=== PATIENT | female | born 1990 | race Caucasian/White ===

== ENCOUNTER → 2017-10-25 21:49 | Observation (INO) ==
[2017-10-25 20:27] LABS: Bilirubin,Urine Negative (Negative); Blood,Urine Negative (Negative); Clarity,Urine Clear (Clear); Color,Urine Yellow (Yellow); Glucose,Urine (UA) Normal (Normal); Ketones,Urine Negative (Negative); Leukocyte Esterase,Urine Moderate (Negative); Nitrite,Urine Negative (Negative); Protein,Urine Negative (Neg-Trace); Specific Gravity,Urine 1.013 (1.010-1.025); Urobilinogen,Urine Normal (Normal)
[2017-10-25 20:28] VITALS: BP 121/74
[2017-10-25 20:28] LABS: Bacteria,Urine None Seen per hpf (None-Few); Hyaline Casts,Urine None Seen per lpf (None-Few); RBC,Urine 0-3 per hpf (0-3); Squamous Epithelial Cell,Urine Many per lpf (None-Few)
--- NOTE | 2017-10-25 20:32 | OB/GYN Progress Note ---
Date of Encounter: 10/25/17 Time of Encounter: 20:28 - Assessment and Plan (1) 22 weeks gestation of Current Visit: Yes Status: Acute admitted for observation (2) Vaginal bleeding Current Visit: Yes Status: Acute Speculum exam: NO blood visualized, vaginosis panel collected SVE Closed Subjective - Subjective Principal diagnosis: Vaginal bleeding 22 weeks gestational age Interval history: Patient is a 27 y/o @ 22 weeks gestation presents to labor and delivery with complaints of vaginal bleeding. Patient reports that at 1730 she went to the restroom and noted dark red blood on toilet tissue. Patient reports the next time she went she only noticed pink spotting and has not seen blood since. Patient denies any cramping, dysuria, urinary hesitancy, urinary frequency, discharge or vaginal odor. Patient denies any intercourse in past 24 hours. Patient had an ultrasound on 10/23/2017 which showed an anterior placenta. Antepartum ROS: vaginal bleeding, movement normal, no loss of fluid, no contractions Objective - Vital Signs Vital Signs: Vital Signs Temp Pulse Resp BP 10/25/17 20:20 97.6 F 75 16 121/74 - Exam FHR: auscultation normal FHR comments: FHR 145 bpm appropriate for gestational age. NO contractions noted. Auscultation: bilateral: normal Abdomen: Present: normal appearance, soft, gravid Uterus: Present: normal Cervical dilation: closed Cervix effacement: thick Comments: Speculum exam: Moderate amount of watery white discharge noted. NO blood noted on exam.
[2017-10-25 20:50] LABS: Amphetamine Screen,Urine Negative ng/mL (Cutoff=1000); Barbiturate Screen,Urine Negative ng/mL (Cutoff=200); Benzodiazepines Screen,Urine Negative ng/mL (Cutoff=200); Cannabinoid Screen,Urine Negative ng/mL (Cutoff = 50); Cocaine Screen,Urine Negative ng/mL (Cutoff= 300); Opiate Screen,Urine Negative ng/mL (Cutoff=300); Phencyclidine Screen,Urine Negative ng/mL (Cutoff=25)
[2017-10-25 21:32] LABS: Candida DNA Not Detected (Not Detect); Gardnerella DNA DETECTED (Not Detect); Trichomonas DNA Not Detected (Not Detect)
--- NOTE | 2017-10-25 21:41 | Discharge Summary ---
Date of Encounter: 10/25/17 Time of Encounter: 21:39 - Discharge Diagnosis (1) 22 weeks gestation of Priority: Primary Status: Acute (2) Vaginal bleeding Priority: Secondary Status: Acute (3) Bacterial vaginosis Priority: Secondary Status: Acute Comments: RX for flagyl 500mg po BID x 7 days - Discharge Medications Prescriptions: metroNIDAZOLE [Flagyl] 500 mg PO ONCE 7 Days #14 tablet Home Medications: metroNIDAZOLE [Flagyl] 500 mg PO ONCE 7 Days #14 tablet 10/25/17 [Rx] Allergies/Adverse Reactions: 3 Allergy/AdvReac Type Severity Reaction Status Date / Time No Known Allergies Allergy Verified 10/25/17 20:29 Data Procedures and tests throughout hospitalization: Laboratory Tests 10/25/17 10/25/17 10/25/17 20:16 20:16 20:30 Urine Color Yellow Urine Clarity Clear Urine pH 6.0 Ur Specific [place] 1.013 Urine Protein Negative Urine Glucose (UA) Normal Urine Ketones Negative Urine Blood Negative Urine Nitrite Negative Urine Bilirubin Negative Urine Urobilinogen Normal Ur Leukocyte Esterase Moderate H Urine Microscopic RBC 0-3 Urine Microscopic WBC 5-15 H Ur Squamous Epith Cells Many H Urine Bacteria None Seen Hyaline Casts None Seen Ur Culture Indicated? NO. A Urine Opiates Screen Negative Ur Barbiturates Screen Negative Ur Phencyclidine Scrn Negative Ur Amphetamines Screen Negative U Benzodiazepines Scrn Negative Urine Cocaine Screen Negative U Marijuana (THC) Screen Negative Ur Drug Screen Interp See Below [place] species DNA Not Detected Gardnerella DNA Probe DETECTED A Trichomonas DNA Probe Not Detected Labs on day of discharge: Labs from last 24 hours 10/25/17 10/25/17 10/25/17 20:30 20:16 20:16 Urine Color Yellow Urine Clarity Clear Urine pH 6.0 Ur Specific [place] 1.013 Urine Protein Negative Urine Glucose (UA) Normal Urine Ketones Negative Urine Blood Negative Urine Nitrite Negative Urine Bilirubin Negative Urine Urobilinogen Normal Ur Leukocyte Esterase Moderate H Urine Microscopic RBC 0-3 Urine Microscopic WBC 5-15 H Ur Squamous Epith Cells Many H Urine Bacteria None Seen Hyaline Casts None Seen Ur Culture Indicated? NO. A Urine Opiates Screen Negative Ur Barbiturates Screen Negative Ur Phencyclidine Scrn Negative Ur Amphetamines Screen Negative U Benzodiazepines Scrn Negative Urine Cocaine Screen Negative U Marijuana (THC) Screen Negative Ur Drug Screen Interp See Below [place] species DNA Not Detected Gardnerella DNA Probe DETECTED A Trichomonas DNA Probe Not Detected Date of admission: 10/25/17 20:02 Discharging clinician: Mary Carlton Anticipated date of discharge: 10/25/17 - Patient Status Disposition: Home, Self-Care Condition: Good Functional capacity at discharge: independent ambulation - Discharge Instructions Follow Up With: Brandt Royal MD [Partnered Physician] - - Diet and Activity Activity: increase activity as tolerated Diet: regular diet Hospital Course SUGAR [employer]ER Time Attestation: Total time spent providing and/or coordinating discharge services: Exam - Constitutional Vitals: Temp Pulse Resp BP 97.6 F 75 16 121/74 10/25/17 20:20 10/25/17 20:20 10/25/17 20:20 10/25/17 20:20 - VTE Reasons for not Prescribing Prophylaxis: Treatment not Indicated - Low risk for VTE
== END | disposition home or self-care (01) ==
LOC: 1NENULAB
PROVIDERS: ADMIT Advanced Practice Midwife; ATTEND Advanced Practice Midwife